=== PATIENT | male | born 1955 | race Caucasian/White ===

== ENCOUNTER 2016-11-29 19:28 | Emergency (ER) | payer MEDICARE, OTHER ==
[2016-11-29 19:39] VITALS: BP 98/60; PULSE 74; RESP 21; TEMP 98.2; O2SAT 96
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
[2016-11-29 22:00] VITALS: BP 107/59; PULSE 72; RESP 18; O2SAT 97
[2016-11-30 06:50] VITALS: BP 112/73
== END 2016-11-30 06:57 | disposition home or self-care (01) ==
LOC: NEPD 19:28
DX: F10.129 Alcohol abuse with intoxication, unspecified (principal)
CPT/HCPCS: 99281

== ENCOUNTER 2017-06-25 19:21 | Emergency (ER) | payer MEDICARE, OTHER ==
[2017-06-25 19:57] VITALS: BP 168/78; PULSE 80; RESP 18; TEMP 97.9; O2SAT 99
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
== END 2017-06-26 06:18 | disposition home or self-care (01) ==
LOC: NEDAMB 19:21
DX: F10.129 Alcohol abuse with intoxication, unspecified (principal); R56.9 Unspecified convulsions; F17.200 Nicotine dependence, unspecified, uncomplicated
CPT/HCPCS: 99283

== ENCOUNTER 2017-07-16 21:06 | Emergency (ER) | payer MEDICARE, OTHER ==
[~2017-07-16] VITALS: Ht 170.2 cm; Wt 65.0 kg
[2017-07-16 21:26] VITALS: BP 130/74; PULSE 89; RESP 18; TEMP 97.7; O2SAT 98
[2017-07-16] MEDS ORDERED: MORPHINE SULFATE 4 MG/ML INJ IV PUSH ONE (21:30)
[2017-07-16 21:55] LABS: AUTOMATED NEUTROPHIL # 6.2 TH/MM3 (1.8-7.7); BASOPHIL # 0.1 TH/MM3 (0-0.2); BASOPHIL % 0.5 % (0.0-2.0); EOSINOPHIL # 0.2 TH/MM3 (0-0.4); EOSINOPHIL % 2.4 % (0.0-4.0); HEMATOCRIT 48.7 % (39.0-51.0); HEMOGLOBIN 16.8 GM/DL (13.0-17.0); LYMPHOCYTE # 2.7 TH/MM3 (1.0-4.8); MEAN CORPUSCULAR HEMOGLOBIN 34.9 PG (27.0-34.0); MEAN CORPUSCULAR HGB CONC 34.6 % (32.0-36.0); MONO % 5.5 % (0.0-8.0); MONOCYTE # 0.5 TH/MM3 (0-0.9); NEUT % 63.6 % (16.0-70.0); PLATELET COUNT 264 TH/MM3 (150-450); RED BLOOD COUNT 4.82 MIL/MM3 (4.50-5.90); RED CELL DISTRIBUTION WIDTH 13.9 % (11.6-17.2); WHITE BLOOD COUNT 9.7 TH/MM3 (4.0-11.0)
--- NOTE | 2017-07-16 21:59 | RADRPT ---
EXAM DATE/TIME: 07/16/2017 21:23 [facility] COMPARISON: No previous studies available for comparison. INDICATIONS : Chest pain after fall. MEDICAL HISTORY : None. SURGICAL HISTORY : None. ENCOUNTER: Initial ACUITY: 1 day PAIN SCORE: Non-responsive. LOCATION: Bilateral chest FINDINGS: A single view of the chest demonstrates subsegmental basilar air space disease. No effusion. No pneum othorax. Heart size upper limits normal. CONCLUSION: 1. Subsegmental basal airspace disease which may represent atelectasis. No effusion or pneumothorax. Wayne Medrano MD on July 16, 2017 at 21:55 Board Certified Radiologist. This report was verified electronically.
[2017-07-16 22:00] VITALS: BP 104/63; PULSE 68; RESP 16; O2SAT 95
[2017-07-16 22:19] LABS: ALT (GPT) 22 U/L (12-78)
[2017-07-16 22:21] LABS: ALKALINE PHOSPHATASE 110 U/L (45-117); TOTAL BILIRUBIN ADULT 0.3 MG/DL (0.2-1.0); TOTAL PROTEIN 8.3 GM/DL (6.4-8.2)
[2017-07-16] MEDS ORDERED: IOHEXOL 350 MG/ML 10 ML VIAL (for RAD DIAG) IVCONTRAST ONE (22:30)
[2017-07-16 22:31] LABS: AST (GOT) 24 U/L (15-37); BLOOD UREA NITROGEN 10 MG/DL (7-18); CALCIUM 8.8 MG/DL (8.5-10.1); CHLORIDE 102 MEQ/L (98-107); CREATININE 0.77 MG/DL (0.60-1.30); GLOMERULAR FILTRATION RATE 103 ML/MIN (>89); GLUCOSE,RANDOM 82 MG/DL (74-106); SODIUM (NA) 136 MEQ/L (136-145)
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
[2017-07-17] VITALS: BP 106/76; PULSE 76; RESP 18; O2SAT 98
--- NOTE | 2017-07-17 | RADRPT ---
EXAM DATE/TIME: 07/16/2017 23:33 [facility] COMPARISON: No previous studies available for comparison. INDICATIONS : Trauma; fall. IV CONTRAST: 100 cc Omnipaque 350 (iohexol) IV ; Cumulative dose for multiple exams. RADIATION DOSE: 5.10 CTDIvol (mGy) ; Combined studies - Thorax/Abdomen/Pelvis MEDICAL HISTORY : None SURGICAL HISTORY : None. ENCOUNTER: Initial ACUITY: 1 day PAIN SCALE: 4/10 LOCATION: Bilateral chest TECHNIQUE: Volumetric scanning of the chest was performed. Using automated exposure control and adjustment of t he mA and/or kV according to patient size, radiation dose was kept as low as reasonably achievable to obtain optimal diagnostic quality images. DICOM format image data is available electronically for review and comparison. Follow-up recommendations for detected pulmonary nodules are based at a minimum on nodule size and pa tient risk factors according to Fleischner Society Guidelines. FINDINGS: LUNGS: There is no consolidation or pneumothorax. Bipolar nodule right lower lobe laterally. A few other sma ller nodules measure 3-4 mm. Severe paraseptal emphysema. Groundglass density posterior right lower l obe. PLEURA: There is no pleural thickening or pleural effusion. MEDIASTINUM: The heart and great vessels demonstrate no acute abnormality. There is no mediastinal or hilar lymph adenopathy. AXILLAE: Within normal limits. No lymphadenopathy. SKELETAL: Subcutaneous emphysema left flank. Mild loss of height of T7. MISCELLANEOUS: The visualized upper abdominal organs demonstrate small hernia.. CONCLUSION: 1. No acute thoracic injury. 2. Emphysema and right basilar density likely atelectasis. 3. Mild loss of height of T7 likely old. Nir Morris MD on July 16, 2017 at 23:55 Board Certified Radiologist. This report was verified electronically.
--- NOTE | 2017-07-17 00:03 | RADRPT ---
EXAM DATE/TIME: 07/16/2017 23:33 [facility] COMPARISON: No previous studies available for comparison. INDICATIONS : Trauma; fall. IV CONTRAST: 100 cc Omnipaque 350 (iohexol) IV ; Cumulative dose for multiple exams. ORAL CONTRAST: No oral contrast ingested. RADIATION DOSE: 5.1 CTDIvol (mGy) ; Combined studies - Thorax/Abdomen/Pelvis MEDICAL HISTORY : None SURGICAL HISTORY : None. ENCOUNTER: Initial ACUITY: 1 day PAIN SCALE: 4/10 LOCATION: Bilateral abdomen TECHNIQUE: Volumetric scanning of the abdomen and pelvis was performed. Using automated exposure control and ad justment of the mA and/or kV according to patient size, radiation dose was kept as low as reasonably achievable to obtain optimal diagnostic quality images. DICOM format image data is available electro nically for review and comparison. FINDINGS: LOWER LUNGS: The visualized lower lungs are clear. LIVER: Homogeneous density without lesion. There is no dilation of the biliary tree. No calcified gallston es. SPLEEN: Normal size without lesion. PANCREAS: Within normal limits. KIDNEYS: Normal in size and shape. There is no mass, stone or hydronephrosis. ADRENAL GLANDS: Within normal limits. VASCULAR: There is no aortic aneurysm. BOWEL/MESENTERY: The stomach, small bowel, and colon demonstrate no acute abnormality. Small hiatal hernia. There is no free intraperitoneal air or fluid. ABDOMINAL WALL: Within normal limits. RETROPERITONEUM: There is no lymphadenopathy. BLADDER: Urinary bladder is distended. No wall thickening or mass. REPRODUCTIVE: Within normal limits. INGUINAL: There is no lymphadenopathy or hernia. MUSCULOSKELETAL: Scoliosis and degenerative changes of the lumbar spine. Prominent hypertrophic degenerative changes o f the lower facets. Subcutaneous emphysema left flank. CONCLUSION: 1. Soft tissue injury/subcutaneous emphysema left flank. 2. Small hiatal hernia. 3. Distended urinary bladder. 4. Degenerative changes lower lumbar spine. Nir Morris MD on July 16, 2017 at 23:58 Board Certified Radiologist. This report was verified electronically.
[2017-07-17] MEDS ORDERED: TETANUS/DIPHTHERIA TOXOID ADULT 0.5 ML VIAL IM ONE (01:45)
[2017-07-17 01:56] VITALS: BP 106/62; PULSE 72; RESP 18; TEMP 98.6; O2SAT 99
== END 2017-07-17 05:46 | disposition home or self-care (01) ==
LOC: NEPE 21:06 → NEDAMB 07-17 05:46
DX: F10.129 Alcohol abuse with intoxication, unspecified (principal); S31.134A Puncture wound of abdominal wall without foreign body, left lower quadrant without penetration into peritoneal cavity, initial encounter; F12.90 Cannabis use, unspecified, uncomplicated; F17.200 Nicotine dependence, unspecified, uncomplicated; R07.9 Chest pain, unspecified; W19.XXXA Unspecified fall, initial encounter; Z23 Encounter for immunization
CPT/HCPCS: 71045; 71260; 74177; 80053; 85025; 85610; 85730; 90471; 90714; 96374; 99284; J2270; Q9967

== ENCOUNTER 2017-09-20 20:04 | Emergency (ER) | payer MEDICARE ==
[~2017-09-20] VITALS: Ht 177.8 cm; Wt 63.6 kg
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
[2017-09-20 20:33] VITALS: BP 118/81; PULSE 78; RESP 18; TEMP 98.7; O2SAT 96
--- NOTE | 2017-09-20 20:47 | RADRPT ---
EXAM DATE: 09/20/2017 8:43 PM EDT AGE/SEX: 62 years / Male INDICATIONS: Altered mental status. CLINICAL DATA: This is the patient's initial encounter. Patient reports that signs and symptoms have been present for 1 day and indicates a pain score of 0/10. MEDICAL/SURGICAL HISTORY: None. None. RADIATION DOSE: 29.36 CTDI (mGy) [place] [facility] [place]/27/2014. . TECHNIQUE: CT of the head without contrast. Using automated exposure control and adjustment of the mA and/or kV according to patient size, radiation dose was kept as low as reasonably achievable to ob tain optimal diagnostic quality images. FINDINGS: Cerebrum: The ventricles are dilated but stable. Area of encephalomalacia right frontal lobe is stab le. No evidence of midline shift, mass lesion, hemorrhage or acute infarction. No extraaxial fluid collections are seen. Posterior Fossa: The cerebellum and brainstem are intact. The 4th ventricle is midline. The cerebe llopontine angle is unremarkable. Extracranial: The visualized portion of the orbits is intact. Skull: The calvaria is intact. No evidence of skull fracture. CONCLUSION: 1. Encephalomalacia right frontal lobe is stable. 2. Ventricles are again noted to be dilated but stable. Electronically signed by: Nir Morris MD 09/20/2017 8:45 PM EDT
--- NOTE | 2017-09-20 21:00 | RADRPT ---
EXAM DATE: 09/20/2017 8:53 PM EDT AGE/SEX: 62 years / Male INDICATIONS: Trauma, possible fall. CLINICAL DATA: This is the patient's initial encounter. Patient reports that signs and symptoms have been present for 1 day and indicates a pain score of 4/10. MEDICAL/SURGICAL HISTORY: None. None. RADIATION DOSE: 21.96 CTDI (mGy) COMPARISON: No prior exams available for comparison. TECHNIQUE: Contiguous axial images were obtained using helical multirow detector technique. The vol umetric data was post-processed with multiplanar reconstruction in oblique axial, sagittal, and coron al planes. Using automated exposure control and adjustment of the mA and/or kV according to patient s ize, radiation dose was kept as low as reasonably achievable to obtain optimal diagnostic quality kathy ges. FINDINGS: Vertebrae: Normal vertebral body height. Degenerative changes greatest at C5-6. Alignment: Normal. No subluxation. Biapical emphysema, greater on the right. C2-3: The bony spinal canal is normal in size. No evidence of disc bulge or herniation. The neural foramina are bilaterally patent. C3-4: Posterior disc osteophyte complex without canal stenosis. Bilateral neural foraminal narrowing . C4-5: Posterior disc osteophyte complex without canal stenosis. Bilateral neural foraminal narrowing . C5-6: Posterior disc osteophyte complex without canal stenosis. Bilateral neural foraminal narrowing . C6-7: Posterior disc osteophyte complex without canal stenosis. Bilateral neural foraminal narrowing . C7-T1: The bony spinal canal is normal in size. No evidence of disc bulge or herniation. The neura l foramina are bilaterally patent. CONCLUSION: 1. Prominent degenerative changes. 2. No fracture Electronically signed by: Nir Morris MD 09/20/2017 8:59 PM EDT
== END 2017-09-21 06:34 | disposition home or self-care (01) ==
LOC: NEPC 20:04 → NEPD 09-21 06:34
DX: F10.920 Alcohol use, unspecified with intoxication, uncomplicated (principal); F17.210 Nicotine dependence, cigarettes, uncomplicated
CPT/HCPCS: 70450; 72125; 99283